=== PATIENT | female | born 1955 | race Caucasian/White ===

== ENCOUNTER 2018-01-03 13:59 | Inpatient (IN) ==
[2018-01-03] MEDS ORDERED: ALBUTEROL/IPRATROPIUM 3 ML NEB RESP TX PRN (14:03)
[2018-01-03] MEDS ORDERED: CLORAZEPATE 7.5 MG TABLET PO PRN (14:20)
[2018-01-03] MEDS: ALBUTEROL/IPRATROPIUM 3 ML NEB RESP TX SCH ×2 (15:55→19:44)
[2018-01-03] MEDS: DEXTROSE 5% NACL 0.45% 1,000 ML IV SCH (16:00)
[2018-01-03] MEDS: BENZONATATE 100 MG CAPSULE PO SCH ×2 (16:00→20:35)
[2018-01-03] MEDS: SUCRALFATE 1 GM TABLET PO SCH ×2 (16:00→20:35)
[2018-01-03] MEDS: POTASSIUM CHLORIDE 10 MEQ TABLET PO SCH ×2 (16:01→20:35)
[2018-01-03] MEDS: methylPREDNISolone SOD SUC 40 MG/1 ML VIAL IV SCH ×2 (16:01→23:38)
[2018-01-03] MEDS: MEROPENEM 1,000 MG in SYRINGE 1 EACH IV SCH ×2 (16:03→23:40)
[2018-01-03] MEDS: THEOPHYLLINE ER 300 MG TABLET PO SCH (16:11)
[2018-01-03 18:09] LABS: Apearance,Urine CLEAR (Clear); Bacteria,Urine Few /HPF (Few); Bilirubin,Urine Negative (Negative); Blood, Urine Negative (Negative); Glucose,Urine (UA) Negative (Negative); Ketones,Urine 20 mg/dL (Negative); Nitrite,Urine Negative (Negative); Protein,Urine Negative; RBC,Urine <1 /HPF (0-4); Urine Color Yellow (Yellow); Urine Specific Gravity 1.006 (1.001-1.035); Urine Urobilinogen < 2.0 EU/DL (0.2-1.0); WBC,Urine 1 /HPF (0-6)
[2018-01-03] MEDS: DORNASE ALFA 2.5 MG/2.5 ML VIAL RESP TX SCH (19:44)
[2018-01-03] MEDS: MAGNESIUM CHLORIDE 64 MG TABLET PO SCH (20:35)
[2018-01-03] MEDS: PANTOPRAZOLE 40 MG TABLET PO SCH (20:35)
[2018-01-03] MEDS: MONTELUKAST 10 MG TABLET PO SCH (20:35)
[2018-01-03] MEDS: SPIRONOLACTONE 25 MG TABLET PO SCH (20:35)
[2018-01-03] MEDS: NIFEdipine 10 MG CAPSULE PO SCH (20:35)
[2018-01-03] MEDS: ALBUTEROL 2 MG TABLET PO SCH (20:38)
[2018-01-04 03:40] LABS: Basophils % 0.3 % (0.0-0.8); Hematocrit 37.7 VOL% (35.7-47.0); Hemoglobin 12.8 GM/DL (12.0-16.0); Immature Granulocytes % 0.7 %; Immature Granulocytes Absolute 0.05 #; Lymphocytes # 0.7 10*3/uL (1.4-4.0); Lymphocytes % 9.3 % (21.3-54.2); Mean Corpuscular Hemoglobin 28 PG (27-34); Mean Corpuscular Volume 81.8 FL (87-102); Mean Platelet Volume 11.9 FL (9.6-12.0); Monocytes # 0.1 10*3/uL (0.11-0.8); Monocytes % 0.7 % (1.7-12.7); Neutrophils # 6.5 10*3/uL (1.4-7.4); Platelet Count 234 T/CUMM (130-400); Red Blood Count 4.61 MC/CUMM (3.8-5.5); White Blood Count 7.3 T/CUMM (4-12)
[2018-01-04 03:57] LABS: Calcium 8.7 MG/DL (8.5-10.1); Osmolality,Calculated 287.1 MOS/KG (273-304); Potassium 3.8 MMOL/L (3.5-5.1)
[2018-01-04] MEDS: methylPREDNISolone SOD SUC 40 MG/1 ML VIAL IV SCH ×3 (07:04→22:31)
[2018-01-04] MEDS: MEROPENEM 1,000 MG in SYRINGE 1 EACH IV SCH ×3 (07:05→22:25)
[2018-01-04] MEDS: DORNASE ALFA 2.5 MG/2.5 ML VIAL RESP TX SCH ×2 (07:55→19:17)
[2018-01-04] MEDS: ALBUTEROL/IPRATROPIUM 3 ML NEB RESP TX SCH ×4 (07:55→19:17)
[2018-01-04] MEDS: SUCRALFATE 1 GM TABLET PO SCH ×4 (09:00→21:22)
[2018-01-04] MEDS: traZODone 50 MG TABLET PO SCH (09:00)
[2018-01-04] MEDS: MAGNESIUM CHLORIDE 64 MG TABLET PO SCH ×2 (09:00→21:21)
[2018-01-04] MEDS: ESTRADIOL 1 MG TABLET PO SCH (09:01)
[2018-01-04] MEDS: BENZONATATE 100 MG CAPSULE PO SCH ×3 (09:01→21:21)
[2018-01-04] MEDS: SPIRONOLACTONE 25 MG TABLET PO SCH ×2 (09:01→21:21)
[2018-01-04] MEDS: THEOPHYLLINE ER 300 MG TABLET PO SCH ×2 (09:01→16:50)
[2018-01-04] MEDS: MONTELUKAST 10 MG TABLET PO SCH ×2 (09:01→21:21)
[2018-01-04] MEDS: ALBUTEROL 2 MG TABLET PO SCH ×2 (09:01→21:21)
[2018-01-04] MEDS: hydroCHLOROthiazide 12.5 MG CAPSULE PO SCH (09:02)
[2018-01-04] MEDS: PANTOPRAZOLE 40 MG TABLET PO SCH (09:02)
[2018-01-04] MEDS: POTASSIUM CHLORIDE 10 MEQ TABLET PO SCH ×4 (09:02→21:21)
[2018-01-04] MEDS: NIFEdipine 10 MG CAPSULE PO SCH ×2 (09:02→21:21)
[2018-01-04] MEDS: ALLOPURINOL 100 MG TABLET PO SCH (09:02)
[2018-01-04] MEDS: CHOLECALCIFEROL 1,000 UNIT TABLET PO SCH (09:02)
[2018-01-04] MEDS: ASPIRIN EC 81 MG TABLET PO SCH (09:02)
[2018-01-04] MEDS: DEXTROSE 5% NACL 0.45% 1,000 ML IV SCH (09:06)
[2018-01-04] MEDS: FLUTICASONE 50 MCG NASAL SPRAY 16 GM BOTTLE BOTH NARES SCH (09:50)
[2018-01-04] MEDS: TEMAZEPAM 15 MG CAPSULE PO PRN (21:22)
[2018-01-05] MEDS: DEXTROSE 5% NACL 0.45% 1,000 ML IV SCH ×2 (00:42→17:27)
[2018-01-05] MEDS: MEROPENEM 1,000 MG in SYRINGE 1 EACH IV SCH ×3 (06:45→23:10)
[2018-01-05] MEDS: methylPREDNISolone SOD SUC 40 MG/1 ML VIAL IV SCH ×3 (06:46→23:10)
[2018-01-05] MEDS: DORNASE ALFA 2.5 MG/2.5 ML VIAL RESP TX SCH ×2 (07:42→19:57)
[2018-01-05] MEDS: ALBUTEROL/IPRATROPIUM 3 ML NEB RESP TX SCH ×4 (07:42→19:55)
[2018-01-05] MEDS: ALLOPURINOL 100 MG TABLET PO SCH (09:19)
[2018-01-05] MEDS: traZODone 50 MG TABLET PO SCH (09:19)
[2018-01-05] MEDS: ALBUTEROL 2 MG TABLET PO SCH ×2 (09:19→21:18)
[2018-01-05] MEDS: POTASSIUM CHLORIDE 10 MEQ TABLET PO SCH ×4 (09:20→21:18)
[2018-01-05] MEDS: THEOPHYLLINE ER 300 MG TABLET PO SCH ×2 (09:20→17:27)
[2018-01-05] MEDS: BENZONATATE 100 MG CAPSULE PO SCH ×3 (09:20→21:18)
[2018-01-05] MEDS: MAGNESIUM CHLORIDE 64 MG TABLET PO SCH ×2 (09:21→21:18)
[2018-01-05] MEDS: NIFEdipine 10 MG CAPSULE PO SCH ×2 (09:21→21:18)
[2018-01-05] MEDS: CHOLECALCIFEROL 1,000 UNIT TABLET PO SCH (09:21)
[2018-01-05] MEDS: ESTRADIOL 1 MG TABLET PO SCH (09:21)
[2018-01-05] MEDS: SPIRONOLACTONE 25 MG TABLET PO SCH ×2 (09:21→21:19)
[2018-01-05] MEDS: SUCRALFATE 1 GM TABLET PO SCH ×4 (09:21→21:18)
[2018-01-05] MEDS: PANTOPRAZOLE 40 MG TABLET PO SCH (09:21)
[2018-01-05] MEDS: hydroCHLOROthiazide 12.5 MG CAPSULE PO SCH (09:21)
[2018-01-05] MEDS: MONTELUKAST 10 MG TABLET PO SCH ×2 (09:21→21:19)
[2018-01-05] MEDS: ASPIRIN EC 81 MG TABLET PO SCH (09:21)
[2018-01-05] MEDS: FLUTICASONE 50 MCG NASAL SPRAY 16 GM BOTTLE BOTH NARES SCH (09:23)
[2018-01-05] MEDS: TEMAZEPAM 15 MG CAPSULE PO PRN (21:18)
[2018-01-06] MEDS: methylPREDNISolone SOD SUC 40 MG/1 ML VIAL IV SCH ×2 (06:53→17:33)
[2018-01-06] MEDS: MEROPENEM 1,000 MG in SYRINGE 1 EACH IV SCH ×3 (06:53→22:20)
[2018-01-06] MEDS: ALBUTEROL/IPRATROPIUM 3 ML NEB RESP TX SCH ×4 (07:44→19:17)
[2018-01-06] MEDS: DORNASE ALFA 2.5 MG/2.5 ML VIAL RESP TX SCH ×2 (07:49→19:17)
[2018-01-06] MEDS: CHOLECALCIFEROL 1,000 UNIT TABLET PO SCH (09:47)
[2018-01-06] MEDS: THEOPHYLLINE ER 300 MG TABLET PO SCH ×2 (09:47→17:33)
[2018-01-06] MEDS: POTASSIUM CHLORIDE 10 MEQ TABLET PO SCH ×4 (09:47→22:20)
[2018-01-06] MEDS: MONTELUKAST 10 MG TABLET PO SCH ×2 (09:48→22:18)
[2018-01-06] MEDS: ALBUTEROL 2 MG TABLET PO SCH ×2 (09:48→22:18)
[2018-01-06] MEDS: ALLOPURINOL 100 MG TABLET PO SCH (09:48)
[2018-01-06] MEDS: traZODone 50 MG TABLET PO SCH (09:48)
[2018-01-06] MEDS: SPIRONOLACTONE 25 MG TABLET PO SCH ×2 (09:49→22:19)
[2018-01-06] MEDS: MAGNESIUM CHLORIDE 64 MG TABLET PO SCH ×2 (09:49→22:20)
[2018-01-06] MEDS: hydroCHLOROthiazide 12.5 MG CAPSULE PO SCH (09:49)
[2018-01-06] MEDS: PANTOPRAZOLE 40 MG TABLET PO SCH (09:49)
[2018-01-06] MEDS: ESTRADIOL 1 MG TABLET PO SCH (09:49)
[2018-01-06] MEDS: ASPIRIN EC 81 MG TABLET PO SCH (09:49)
[2018-01-06] MEDS: NIFEdipine 10 MG CAPSULE PO SCH ×2 (09:49→22:20)
[2018-01-06] MEDS: BENZONATATE 100 MG CAPSULE PO SCH ×3 (09:49→22:19)
[2018-01-06] MEDS: SUCRALFATE 1 GM TABLET PO SCH ×4 (09:50→22:19)
[2018-01-06] MEDS: FLUTICASONE 50 MCG NASAL SPRAY 16 GM BOTTLE BOTH NARES SCH (09:50)
[2018-01-06] MEDS: DEXTROSE 5% NACL 0.45% 1,000 ML IV SCH ×2 (10:27→17:35)
[2018-01-06] MEDS: NYSTATIN 500,000 UNIT/5 ML UDCUP SWISH/SWAL SCH ×4 (11:20→22:19)
[2018-01-06] MEDS ORDERED: METOPROLOL TARTRATE 25 MG TABLET PO ONE (17:14)
[2018-01-06] MEDS: TEMAZEPAM 15 MG CAPSULE PO PRN (22:18)
[2018-01-07] MEDS: methylPREDNISolone SOD SUC 40 MG/1 ML VIAL IV SCH ×2 (06:26→17:04)
[2018-01-07] MEDS: MEROPENEM 1,000 MG in SYRINGE 1 EACH IV SCH ×3 (06:26→23:01)
[2018-01-07] MEDS: ALBUTEROL/IPRATROPIUM 3 ML NEB RESP TX SCH ×4 (07:14→19:15)
[2018-01-07] MEDS: DORNASE ALFA 2.5 MG/2.5 ML VIAL RESP TX SCH ×2 (07:24→19:15)
[2018-01-07 07:49] LABS: Basophils % 0.2 % (0.0-0.8); Hematocrit 37.7 VOL% (35.7-47.0); Hemoglobin 12.7 GM/DL (12.0-16.0); Immature Granulocytes % 2.1 %; Immature Granulocytes Absolute 0.28 #; Lymphocytes # 2.2 10*3/uL (1.4-4.0); Lymphocytes % 16.4 % (21.3-54.2); Mean Corpuscular HGB Conc 33.7 GM/DL (32-36); Mean Corpuscular Hemoglobin 29 PG (27-34); Mean Corpuscular Volume 85.9 FL (87-102); Mean Platelet Volume 11.2 FL (9.6-12.0); Monocytes # 0.9 10*3/uL (0.11-0.8); Monocytes % 6.6 % (1.7-12.7); NRBC # 0.04 10*3/uL; Neutrophils # 9.9 10*3/uL (1.4-7.4); Neutrophils % 74.7 % (38.7-73.9); Platelet Count 264 T/CUMM (130-400); Red Blood Count 4.39 MC/CUMM (3.8-5.5); Red Cell Distribution Width 15.4 % (9.3-17.3); White Blood Count 13.3 T/CUMM (4-12)
[2018-01-07] MEDS ORDERED: LIDOCAINE 2% 20 ML VIAL RESP TX ONE (08:00)
[2018-01-07] MEDS ORDERED: diphenhydrAMINE 50 MG/1 ML VIAL IM ONE (08:00)
[2018-01-07] MEDS ORDERED: MEPERIDINE 50 MG/1 ML VIAL IM ONE (08:00)
[2018-01-07] MEDS ORDERED: LIDOCAINE 2% VISCOUS 100 ML BOTTLE SWISH/SPIT ONE (08:00)
[2018-01-07] MEDS ORDERED: LIDOCAINE 1% 20 ML VIAL MISC INJ ONE (08:00)
[2018-01-07] MEDS ORDERED: BENZONATATE 100 MG CAPSULE PO ONE (08:00)
[2018-01-07 08:04] LABS: PT Patient Result 10.5 SECS; Partial Thromboplastin Time 22.8 SECS (0-40)
[2018-01-07 08:27] LABS: Calcium 8.6 MG/DL (8.5-10.1); Potassium 3.7 MMOL/L (3.5-5.1)
[2018-01-07] MEDS: SUCRALFATE 1 GM TABLET PO SCH ×4 (08:33→20:45)
[2018-01-07] MEDS: THEOPHYLLINE ER 300 MG TABLET PO SCH ×2 (10:18→17:05)
[2018-01-07] MEDS: NYSTATIN 500,000 UNIT/5 ML UDCUP SWISH/SWAL SCH ×4 (10:19→20:44)
[2018-01-07] MEDS: POTASSIUM CHLORIDE 10 MEQ TABLET PO SCH ×4 (10:19→20:45)
[2018-01-07] MEDS: BENZONATATE 100 MG CAPSULE PO SCH ×3 (10:19→20:45)
[2018-01-07] MEDS ORDERED: METOPROLOL TARTRATE 25 MG TABLET PO ONE (11:33)
[2018-01-07] MEDS ORDERED: EPINEPHrine 1 MG/ML VIAL ONE (11:40)
[2018-01-07] MEDS: ASPIRIN EC 81 MG TABLET PO SCH (12:37)
[2018-01-07] MEDS: SPIRONOLACTONE 25 MG TABLET PO SCH ×2 (13:24→20:45)
[2018-01-07] MEDS: ESTRADIOL 1 MG TABLET PO SCH (13:25)
[2018-01-07] MEDS: hydroCHLOROthiazide 12.5 MG CAPSULE PO SCH (13:25)
[2018-01-07] MEDS: FLUTICASONE 50 MCG NASAL SPRAY 16 GM BOTTLE BOTH NARES SCH (13:25)
[2018-01-07] MEDS: NIFEdipine 10 MG CAPSULE PO SCH ×2 (13:26→20:45)
[2018-01-07] MEDS: PANTOPRAZOLE 40 MG TABLET PO SCH (13:26)
[2018-01-07] MEDS: ALLOPURINOL 100 MG TABLET PO SCH (13:27)
[2018-01-07] MEDS: MAGNESIUM CHLORIDE 64 MG TABLET PO SCH ×2 (13:27→20:45)
[2018-01-07] MEDS: MONTELUKAST 10 MG TABLET PO SCH ×2 (13:27→20:45)
[2018-01-07] MEDS: ALBUTEROL 2 MG TABLET PO SCH ×2 (13:33→20:45)
[2018-01-07] MEDS: CHOLECALCIFEROL 1,000 UNIT TABLET PO SCH (13:33)
[2018-01-07] MEDS: DEXTROSE 5% NACL 0.45% 1,000 ML IV SCH ×2 (14:16→19:38)
[2018-01-07] MEDS: traZODone 50 MG TABLET PO SCH ×2 (14:57→20:47)
[2018-01-07] MEDS: TEMAZEPAM 15 MG CAPSULE PO PRN (23:00)
[2018-01-08] MEDS: methylPREDNISolone SOD SUC 40 MG/1 ML VIAL IV SCH ×2 (06:28→17:24)
[2018-01-08] MEDS: MEROPENEM 1,000 MG in SYRINGE 1 EACH IV SCH ×2 (06:29→15:50)
[2018-01-08] MEDS: ALBUTEROL/IPRATROPIUM 3 ML NEB RESP TX SCH ×4 (07:11→20:00)
[2018-01-08] MEDS: DORNASE ALFA 2.5 MG/2.5 ML VIAL RESP TX SCH ×2 (07:20→20:00)
[2018-01-08] MEDS: hydroCHLOROthiazide 12.5 MG CAPSULE PO SCH (10:31)
[2018-01-08] MEDS: ALLOPURINOL 100 MG TABLET PO SCH (10:32)
[2018-01-08] MEDS: MONTELUKAST 10 MG TABLET PO SCH ×2 (10:32→20:29)
[2018-01-08] MEDS: NYSTATIN 500,000 UNIT/5 ML UDCUP SWISH/SWAL SCH ×4 (10:32→20:30)
[2018-01-08] MEDS: POTASSIUM CHLORIDE 10 MEQ TABLET PO SCH ×4 (10:32→20:28)
[2018-01-08] MEDS: MAGNESIUM CHLORIDE 64 MG TABLET PO SCH ×2 (10:33→20:28)
[2018-01-08] MEDS: BENZONATATE 100 MG CAPSULE PO SCH ×3 (10:33→20:28)
[2018-01-08] MEDS: ASPIRIN EC 81 MG TABLET PO SCH (10:33)
[2018-01-08] MEDS: SUCRALFATE 1 GM TABLET PO SCH ×4 (10:33→20:28)
[2018-01-08] MEDS: CHOLECALCIFEROL 1,000 UNIT TABLET PO SCH (10:33)
[2018-01-08] MEDS: SPIRONOLACTONE 25 MG TABLET PO SCH ×2 (10:34→20:28)
[2018-01-08] MEDS: ALBUTEROL 2 MG TABLET PO SCH ×2 (10:34→20:29)
[2018-01-08] MEDS: PANTOPRAZOLE 40 MG TABLET PO SCH (10:34)
[2018-01-08] MEDS: NIFEdipine 10 MG CAPSULE PO SCH ×2 (10:34→20:28)
[2018-01-08] MEDS: THEOPHYLLINE ER 300 MG TABLET PO SCH ×2 (10:35→17:25)
[2018-01-08] MEDS: FLUTICASONE 50 MCG NASAL SPRAY 16 GM BOTTLE BOTH NARES SCH (10:35)
[2018-01-08] MEDS: ESTRADIOL 1 MG TABLET PO SCH (10:39)
[2018-01-08] MEDS: DEXTROSE 5% NACL 0.45% 1,000 ML IV SCH (10:40)
[2018-01-08] MEDS: traZODone 50 MG TABLET PO SCH (20:29)
[2018-01-09] MEDS: TEMAZEPAM 15 MG CAPSULE PO PRN ×2 (00:07→23:34)
[2018-01-09] MEDS: MEROPENEM 1,000 MG in SYRINGE 1 EACH IV SCH ×4 (00:07→23:27)
[2018-01-09] MEDS: DEXTROSE 5% NACL 0.45% 1,000 ML IV SCH ×2 (03:40→23:28)
[2018-01-09] MEDS: methylPREDNISolone SOD SUC 40 MG/1 ML VIAL IV SCH ×2 (07:01→17:38)
[2018-01-09] MEDS: DORNASE ALFA 2.5 MG/2.5 ML VIAL RESP TX SCH ×2 (07:32→19:27)
[2018-01-09] MEDS: ALBUTEROL/IPRATROPIUM 3 ML NEB RESP TX SCH ×4 (07:32→19:27)
[2018-01-09] MEDS: ALBUTEROL 2 MG TABLET PO SCH ×2 (09:14→21:44)
[2018-01-09] MEDS: NIFEdipine 10 MG CAPSULE PO SCH ×2 (09:15→21:45)
[2018-01-09] MEDS: CHOLECALCIFEROL 1,000 UNIT TABLET PO SCH (09:15)
[2018-01-09] MEDS: BENZONATATE 100 MG CAPSULE PO SCH ×3 (09:15→21:45)
[2018-01-09] MEDS: THEOPHYLLINE ER 300 MG TABLET PO SCH ×2 (09:15→17:37)
[2018-01-09] MEDS: MAGNESIUM CHLORIDE 64 MG TABLET PO SCH ×2 (09:16→21:45)
[2018-01-09] MEDS: PANTOPRAZOLE 40 MG TABLET PO SCH (09:16)
[2018-01-09] MEDS: hydroCHLOROthiazide 12.5 MG CAPSULE PO SCH (09:16)
[2018-01-09] MEDS: MONTELUKAST 10 MG TABLET PO SCH ×2 (09:16→21:45)
[2018-01-09] MEDS: SPIRONOLACTONE 25 MG TABLET PO SCH ×2 (09:16→21:45)
[2018-01-09] MEDS: ASPIRIN EC 81 MG TABLET PO SCH (09:16)
[2018-01-09] MEDS: NYSTATIN 500,000 UNIT/5 ML UDCUP SWISH/SWAL SCH ×4 (09:17→21:44)
[2018-01-09] MEDS: ALLOPURINOL 100 MG TABLET PO SCH (09:17)
[2018-01-09] MEDS: POTASSIUM CHLORIDE 10 MEQ TABLET PO SCH ×4 (09:17→21:44)
[2018-01-09] MEDS: FLUTICASONE 50 MCG NASAL SPRAY 16 GM BOTTLE BOTH NARES SCH (09:18)
[2018-01-09] MEDS: SUCRALFATE 1 GM TABLET PO SCH ×4 (09:25→21:45)
[2018-01-09] MEDS: ESTRADIOL 1 MG TABLET PO SCH (09:25)
[2018-01-09] MEDS: traZODone 50 MG TABLET PO SCH (21:45)
[2018-01-09] MEDS ORDERED: CALCIUM CARBONATE CHEW 500 MG TABLET PO PRN (22:38)
[2018-01-10] MEDS: MEROPENEM 1,000 MG in SYRINGE 1 EACH IV SCH (06:12)
[2018-01-10] MEDS: methylPREDNISolone SOD SUC 40 MG/1 ML VIAL IV SCH (06:14)
[2018-01-10 06:23] LABS: Basophils % 0.3 % (0.0-0.8); Eosinophils % 0.1 % (0.00-10.9); Hemoglobin 13.8 GM/DL (12.0-16.0); Immature Granulocytes % 2.1 %; Immature Granulocytes Absolute 0.32 #; Lymphocytes # 1.9 10*3/uL (1.4-4.0); Lymphocytes % 12.2 % (21.3-54.2); Mean Corpuscular HGB Conc 33.7 GM/DL (32-36); Mean Corpuscular Hemoglobin 28 PG (27-34); Mean Platelet Volume 11.4 FL (9.6-12.0); Monocytes # 0.7 10*3/uL (0.11-0.8); Monocytes % 4.8 % (1.7-12.7); NRBC # 0.02 10*3/uL; Neutrophils # 12.4 10*3/uL (1.4-7.4); Neutrophils % 80.5 % (38.7-73.9); Platelet Count 291 T/CUMM (130-400); Red Blood Count 4.94 MC/CUMM (3.8-5.5); Red Cell Distribution Width 14.7 % (9.3-17.3); White Blood Count 15.3 T/CUMM (4-12)
[2018-01-10 06:57] LABS: Osmolality,Calculated 282.4 MOS/KG (273-304)
[2018-01-10] MEDS: ALBUTEROL/IPRATROPIUM 3 ML NEB RESP TX SCH ×2 (07:22→10:58)
[2018-01-10] MEDS: DORNASE ALFA 2.5 MG/2.5 ML VIAL RESP TX SCH (07:22)
[2018-01-10] MEDS: THEOPHYLLINE ER 300 MG TABLET PO SCH (08:11)
[2018-01-10] MEDS: SUCRALFATE 1 GM TABLET PO SCH ×2 (08:11→11:21)
[2018-01-10] MEDS: BENZONATATE 100 MG CAPSULE PO SCH (09:36)
[2018-01-10] MEDS: hydroCHLOROthiazide 12.5 MG CAPSULE PO SCH (09:36)
[2018-01-10] MEDS: MONTELUKAST 10 MG TABLET PO SCH (09:36)
[2018-01-10] MEDS: CHOLECALCIFEROL 1,000 UNIT TABLET PO SCH (09:37)
[2018-01-10] MEDS: NIFEdipine 10 MG CAPSULE PO SCH (09:37)
[2018-01-10] MEDS: POTASSIUM CHLORIDE 10 MEQ TABLET PO SCH (09:37)
[2018-01-10] MEDS: SPIRONOLACTONE 25 MG TABLET PO SCH (09:37)
[2018-01-10] MEDS: ASPIRIN EC 81 MG TABLET PO SCH (09:37)
[2018-01-10] MEDS: PANTOPRAZOLE 40 MG TABLET PO SCH (09:37)
[2018-01-10] MEDS: MAGNESIUM CHLORIDE 64 MG TABLET PO SCH (09:37)
[2018-01-10] MEDS: ESTRADIOL 1 MG TABLET PO SCH (09:37)
[2018-01-10] MEDS: NYSTATIN 500,000 UNIT/5 ML UDCUP SWISH/SWAL SCH (09:38)
[2018-01-10] MEDS: ALLOPURINOL 100 MG TABLET PO SCH (09:38)
[2018-01-10] MEDS: ALBUTEROL 2 MG TABLET PO SCH (09:46)
[2018-01-10] MEDS: FLUTICASONE 50 MCG NASAL SPRAY 16 GM BOTTLE BOTH NARES SCH (09:46)
[2018-01-10 12:00] VITALS: BP 157/86
== END 2018-01-10 13:06 | disposition home or self-care (01) | DRG 202 ==
LOC: N.5E 14:40
PROVIDERS: ADMIT Internal Medicine Pulmonary Disease; ATTEND Internal Medicine Pulmonary Disease